=== PATIENT | female | born 2000 | race Caucasian/White ===

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

== ENCOUNTER → 2018-09-17 | Outpatient (CLI) | payer BC ==
--- NOTE | 2018-09-19 13:13 | MR ---
EXAMINATION TYPE: MR brain wo con DATE OF EXAM: 09/17/2018 COMPARISON: NONE at this institution. HISTORY: Aneurysm per order. Prior abnormal MRI per patient. History of dizziness or hearing loss per patient. TECHNIQUE: Multiplanar, multisequence imaging of the brain and brainstem is performed without IV cont rast. FINDINGS: Diffusion weighted images demonstrate no evidence of a recent infarct or other diffusion abnormality. There is no extraaxial fluid collection or significant white matter signal abnormality. The ventricu lar system and cisternal spaces are normal in size and appearance. The brain volume is age appropria te. Midline structures demonstrate normal morphology. The craniocervical junction appears within normal limits. Normal vascular flow voids are present. The visualized sinuses are clear and the globes are i ntact. No suspicious fluid signal is seen in mastoid air cells bilaterally. IMPRESSION: Unremarkable study. If old outside study becomes available an addendum may be issued. If clinical concern for aneurysm remains present dedicated MRA would be warranted.
== END | disposition home or self-care (01) ==
LOC: RADMRIMAIN 15:47
PROVIDERS: ATTEND Registered Nurse Neuroscience
DX: I67.1 Cerebral aneurysm, nonruptured (principal)
CPT/HCPCS: 70551

== ENCOUNTER → 2018-12-28 | Outpatient (CLI) | payer BC | END | disposition home or self-care (01) | LOC: LABWHC1 10:07 | PROVIDERS: ATTEND Pediatrics | DX: R30.0 Dysuria (principal) | CPT/HCPCS: 87086 ==

== ENCOUNTER 2020-05-10 15:41 | Emergency (ER) | payer BC ==
[2020-05-10 15:49] VITALS: TEMP 97.6
[2020-05-10 16:05] VITALS: RESP 16
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
[2020-05-10 16:29] LABS: Appearance,Urine Clear (Clear); Basophils % (A) 0 %; Bilirubin,Urine Negative (Negative); Blood,Urine Negative (Negative); Color,Urine Yellow; Eosinophils % (A) 1 %; Glucose,Urine (UA) Negative (Negative); HCT 40.6 % (34.0-46.0); HGB 13.8 gm/dL (11.4-16.0); Ketones,Urine Negative (Negative); Leukocyte Esterase,Urine Negative (Negative); Lymphocytes # (A) 1.3 k/uL (1.0-4.8); Lymphocytes % (A) 29 %; Mean Platelet Volume 8.1; Monocytes # (A) 0.4 k/uL (0-1.0); Monocytes % (A) 8 %; Neutrophils # (A) 2.8 k/uL (1.3-7.7); Neutrophils % (A) 60 %; Nitrite,Urine Negative (Negative); PH, Urine 5.5 (5.0-8.0); Platelet Count 188 k/uL (150-450); Protein,Urine Trace (Negative); RBC 4.32 m/uL (3.80-5.40); RDW 12.3 % (11.5-15.5); Specific Gravity,Urine 1.027 (1.001-1.035); Urobilinogen,Urine <2.0 mg/dL (<2.0); WBC 4.6 k/uL (3.8-10.6)
[2020-05-10 16:42] LABS: ALT 7 U/L (4-34); AST 22 U/L (14-36); African American GFR (CKD) >90 (>60 ml/min/1.73 sqM); Albumin 4.8 g/dL (3.5-5.0); Alkaline Phosphatase 55 U/L (38-126); Anion Gap 7 mmol/L; Blood Urea Nitrogen 10 mg/dL (7-17); Calcium 9.6 mg/dL (8.4-10.2); Carbon Dioxide 25 mmol/L (22-30); Chloride 104 mmol/L (98-107); Creatine Kinase 74 U/L (30-135); Glucose 94 mg/dL (74-99); Non-African American GFR(CKD) >90 (>60 ml/min/1.73 sqM); Potassium 4.1 mmol/L (3.5-5.1); Sodium 136 mmol/L (137-145); Total Bilirubin 0.9 mg/dL (0.2-1.3); Total Protein 7.8 g/dL (6.3-8.2)
[2020-05-10 17:11] LABS: VBG PH 7.34 (7.31-7.41)
[2020-05-10 17:52] VITALS: BP 108/75; PULSE 90
== END 2020-05-10 17:57 | disposition home or self-care (01) ==
LOC: EC 15:41
DX: R07.89 Other chest pain (principal); R51.9 Headache, unspecified; R06.02 Shortness of breath; G40.909 Epilepsy, unspecified, not intractable, without status epilepticus; Z79.899 Other long term (current) drug therapy; Z82.49 Family history of ischemic heart disease and other diseases of the circulatory system
CPT/HCPCS: 36415; 80053; 81003; 81025; 82375; 82550; 82803; 83605; 84484; 85025; 93005; 99285

== ENCOUNTER 2020-06-07 10:59 | Emergency (ER) | payer BC ==
[2020-06-07 11:19] VITALS: RESP 18
--- NOTE | 2020-06-07 11:20 | ED ---
General Adult HPI - General Source: patient, RN notes reviewed Mode of arrival: ambulatory Limitations: no limitations <Deonte Carlson - Last Filed: 06/07/20 11:19> <Cristino Bhatt - Last Filed: 06/07/20 15:02> - General Stated complaint: Nausea, swollen throat, GLORY Time Seen by Provider: 06/07/20 11:15 - History of Present Illness Initial comments: 19-year-old female presents emergency Department chief complaint of sore throat, irritation to her throat and then to her chest. She states it feels like something is moving up and down her esophagus. She's had slight nausea no exact vomiting. Patient denies any difficulty breathing currently no fevers or chills no body aches. No sick contacts. Patient has no history of heartburn. She did state that she received started a new control one week ago. (Deonte Carlson) This is a 19-year-old female presents emergency Department complaining of sore throat and occasionally feeling like things are getting stuck in her esophagus. Patient states they never do get stuck and she is able to eat and drink and get everything down but it just seems more difficult than usual. Patient states she is slightly nauseated but hasn't had any vomiting. Patient states occasionally she thinks when she swallows might of a little shortness of breath as well. Patient denies any fever chills patient denies any diarrhea patient denies any loss of smell or taste. Patient denies any cough. Patient denies any chest pain or palpitations (Cristino Bhatt) - Related Data Home Medications Medication Instructions Recorded Confirmed levETIRAcetam [Keppra] 750 mg PO BID 05/10/20 06/07/20 Norethindrone-E.estradiol-Iron 1 tab PO DAILY@1730 06/07/20 06/07/20 [Junel Fe 1 mg-20 Mcg Tablet] Previous Rx's Medication Instructions Recorded Famotidine [Pepcid] 20 mg PO BID #20 tablet 06/07/20 Allergies Allergy/AdvReac Type Severity Reaction Status Date / Time No Known Allergies Allergy Verified 06/07/20 14:14 Review of Systems ROS Other: All systems not noted in ROS Statement are negative. <Deonte Carlson - Last Filed: 06/07/20 11:19> ROS Other: All systems not noted in ROS Statement are negative. <Cristino Bhatt - Last Filed: 06/07/20 15:02> ROS Statement: Those systems with pertinent positive or pertinent negative responses have been documented in the HPI. Past Medical History Past Medical History: Seizure Disorder History of Any Multi-Drug Resistant Organisms: None Reported Past Surgical History: No Surgical Hx Reported Additional Past Surgical History / Comment(s): angiogram Past Psychological History: Anxiety Smoking Status: Never smoker Past Alcohol Use History: Occasional Past Drug Use History: None Reported <Deonte Carlson - Last Filed: 06/07/20 11:19> General Exam Limitations: no limitations General appearance: alert, in no apparent distress Head exam: Present: atraumatic, normocephalic, normal inspection Eye exam: Present: normal appearance, PERRL, EOMI. Absent: scleral icterus, conjunctival injection, periorbital swelling ENT exam: Present: normal exam, normal oropharynx, mucous membranes moist Respiratory exam: Present: normal lung sounds bilaterally. Absent: respiratory distress, wheezes, rales, rhonchi, stridor Cardiovascular Exam: Present: regular rate, normal rhythm, normal heart sounds. Absent: systolic murmur, diastolic murmur, rubs, gallop, clicks <Deonte Carlson - Last Filed: 06/07/20 11:19> <Cristino Bhatt - Last Filed: 06/07/20 15:02> - General Exam Comments Initial Comments: GENERAL: Patient is well-developed and well-nourished. Patient is nontoxic and well- hydrated and is in no acute distress. ENT: Neck is soft and supple. No significant lymphadenopathy is noted. Oropharynx is clear. Moist mucous membranes. Neck has full range of motion without eliciting any pain. EYES: The sclera were anicteric and conjunctiva were pink and moist. Extraocular movements were intact and pupils were equal round and reactive to light. Eyelids were unremarkable. PULMONARY: Unlabored respirations. Good breath sounds bilaterally. No audible rales rhonchi or wheezing was noted. CARDIOVASCULAR: There is a regular rate and rhythm without any murmurs gallops or rubs. ABDOMEN: Soft and nontender with normal bowel sounds. SKIN: Skin is clear with no lesions or rashes and otherwise unremarkable. NEUROLOGIC: Patient is alert and oriented x3. Cranial nerves II through XII are grossly intact. Motor and sensory are also intact. Normal speech, volume and content. Symmetrical smile. MUSCULOSKELETAL: Normal extremities with adequate strength and full range of motion. LYMPHATICS: No significant lymphadenopathy is noted PSYCHIATRIC: Normal psychiatric evaluation. (Cristino Bhatt) Course Vital Signs 06/07/20 11:16 Temperature 98 F Pulse Rate 106 H Respiratory 18 Rate Blood Pressure 129/76 Medical Decision Making <Cristino Bhatt - Last Filed: 06/07/20 15:02> - Medical Decision Making Chest x-ray shows no acute abnormality. Patient a GI cocktail didn't seem to help the symptoms. I recommended the patient follow-up with GI for an endoscopy. Rapid strep is negative. (Cristino Bhatt) - Lab Data Lab Results 06/07/20 Range/Units 13:25 Group A Strep Rapid Negative (Negative) Disposition <Deonte Carlson - Last Filed: 06/07/20 11:19> Is patient prescribed a controlled substance at d/c from ED?: No <Cristino Bhatt - Last Filed: 06/07/20 15:02> Clinical Impression: Gastroesophageal reflux Disposition: HOME SELF-CARE Condition: Good Instructions (If sedation given, give patient instructions): Gastroesophageal Reflux Disease (ED) Prescriptions: Famotidine [Pepcid] 20 mg PO BID #20 tablet Referrals: Mayur Redmond DO [Primary Care Provider] - 1-2 days
[2020-06-07] MEDS ORDERED: MAG HYDROX/AL HYDROX/SIMETH 30 ML, HYOSCYAMINE ELIXIR 10 ML PO STA ×2 (13:29)
--- NOTE | 2020-06-07 13:57 | XR ---
EXAMINATION TYPE: XR chest 2V DATE OF EXAM: 06/07/2020 COMPARISON: NONE HISTORY: Difficulty breathing TECHNIQUE: Frontal and lateral views of the chest are obtained. FINDINGS: There is no focal air space opacity, pleural effusion, or pneumothorax seen. The cardiac silhouette size is within normal limits. The osseous structures are intact. IMPRESSION: No acute cardiopulmonary process.
[2020-06-07] MEDS ORDERED: ONDANSETRON 4 MG ODT STARTER PACK 2 TAB BTL PO STA (15:03)
[2020-06-07] MEDS ORDERED: ONDANSETRON ODT 4 MG TAB PO STA (15:03)
[2020-06-07 15:52] VITALS: BP 111/74; PULSE 70; TEMP 98.2
== END 2020-06-07 15:52 | disposition home or self-care (01) ==
LOC: EC 10:59
DX: K21.9 Gastro-esophageal reflux disease without esophagitis (principal)
CPT/HCPCS: 71046; 87081; 87430; 99283

== ENCOUNTER → 2020-06-21 | Outpatient (CLI) | payer BC ==
--- NOTE | 2020-06-21 15:52 | FL ---
EXAMINATION TYPE: FL barium swallow DATE OF EXAM: 06/21/2020 COMPARISON: None HISTORY: Dysphagia TECHNIQUE: A single contrast UGI study is performed. FINDINGS: Fluoroscopy time: 40 seconds Images: 35 Esophagus dilates to normal caliber and has normal contour the gastroesophageal junction. Gastroesoph ageal junction opens normal caliber. No reflux was elicited during the examination. No secondary or t ertiary contractions are evident. There is complete stripping of the esophageal bolus in the horizont al drinking position. IMPRESSIONS: 1. Normal esophagram
== END | disposition home or self-care (01) ==
LOC: RADUSWWP 09:53
PROVIDERS: ATTEND Family Medicine
DX: R13.10 Dysphagia, unspecified (principal)
CPT/HCPCS: 74220

== ENCOUNTER → 2021-03-21 | Outpatient (CLI) | payer BC ==
[2021-03-21 15:00] LABS: INR 1.1 (<1.2); Partial Thromboplastin Time 25.7 sec (22.0-30.0); Prothrombin Time 11.2 sec (9.0-12.0)
[2021-03-22 09:52] LABS: Protein C (Activity) 90 % (71-138)
[2021-03-22 12:04] LABS: APTT 56 Sec(s) (<43); APTT 1:1 Mix 41 Sec(s) (<43); DRVVT 1:1 Mix 39 Sec(s) (<44); Dilute Russell Viper Venom 46 Sec(s) (<44)
[2021-03-22 13:09] LABS: Anti-Thrombin III Antigen 92 % (80 - 120)
== END | disposition home or self-care (01) ==
LOC: LABWHC1 10:37
PROVIDERS: ATTEND Psychiatry & Neurology Neurology
DX: I63.9 Cerebral infarction, unspecified (principal)
CPT/HCPCS: 36415; 81241; 81291; 85301; 85303; 85306; 85610; 85613; 85730

== ENCOUNTER 2021-04-08 08:03 | Day surgery (SDC) | payer BC ==
[2021-04-03 14:02] VITALS: BMI 21.8
[2021-04-08 08:31] VITALS: TEMP 98.2
[2021-04-08] MEDS ORDERED: SODIUM CHLORIDE 0.9% 500 ML 500 ML IV ONE (08:31)
[2021-04-08] MEDS ORDERED: fentaNYL (PF) 50 MCG/ML 2 ML AMP ONE (09:32)
[2021-04-08] MEDS: BENZOCAINE SPRAY 1 CAN TOPICAL ONE ×2 (09:50→10:06)
[2021-04-08] MEDS ORDERED: MIDAZOLAM 2 MG/2 ML VIAL IV ONE (10:06)
[2021-04-08] MEDS ORDERED: fentaNYL (PF) 50 MCG/ML 2 ML AMP IV ONE (10:06)
--- NOTE | 2021-04-08 11:47 | P.TEE ---
Description of Procedure(s): Indication: CVA rule out cardiac source Procedure note: After obtaining informed consent transesophageal cardiogram was performed in left lateral position using an Omniplane probe local and IV sedation were obtained with 2 mg of Versed and 25 g of fentanyl patient tolerated the procedure well without any observed it complications 2-D M-mode color Doppler and spectral analysis was performed agitated saline contrast study was used Findings: Left ventricle has normal size and systolic function left atrium appears mildly enlarged right atrium and right ventricle seen within normal limits There is evidence of [id number] shunt across the interatrial septum without any evidence of [id number] shunt with agitated saline contrast study this seems to be secondary to a small septum second of atrial septal defect Mitral valve is anatomically normal there is no evidence of mitral stenosis or regurgitation Tricuspid valve appears normal Aortic valve is a 3 leaflet valve there is no evidence of right stenosis or regurgitation Left atrial appendage is free of thrombus Conclusions: No intracardiac thrombus There is a small septum secundum atrial septal defect with [id number] shunt Plan: I will refer the patient to a pediatric neurologist for further advice I will refer the patient to lithographic stripper given the abnormal hypercoagulable workup
[2021-04-08 18:01] VITALS: BP 111/66; PULSE 84; RESP 16
== END 2021-04-08 11:15 | disposition home or self-care (01) ==
LOC: CATHCVL 08:03
PROVIDERS: ATTEND Internal Medicine Cardiovascular Disease
DX: I63.9 Cerebral infarction, unspecified (principal); Z20.822 Contact with and (suspected) exposure to COVID-19; Q21.1 Atrial septal defect; Z82.49 Family history of ischemic heart disease and other diseases of the circulatory system; Z79.899 Other long term (current) drug therapy; Z79.82 Long term (current) use of aspirin; Z88.8 Allergy status to other drugs, medicaments and biological substances
CPT/HCPCS: 93312; 93320; 93325; 81025; 87635; J2250; J3010

== ENCOUNTER → 2021-05-14 | Outpatient (CLI) | payer BC ==
--- NOTE | 2021-05-14 16:42 | US ---
EXAMINATION TYPE: US venous doppler duplex LE BI DATE OF EXAM: 05/14/2021 3:10 PM COMPARISON: NONE CLINICAL HISTORY: 20-year-old female D68.59 hypercoagulable state. TIA, seizures; recently diagnosed with congenital heart defect; on baby aspirin SIDE PERFORMED: Bilateral TECHNIQUE: The lower extremity deep venous system is examined utilizing real time linear array sonog ayesha with graded compression, doppler sonography and color-flow sonography. FINDINGS: VESSELS IMAGED: Common Femoral Vein Deep Femoral Vein Greater Saphenous Vein * Femoral Vein Popliteal Vein Small Saphenous Vein * Proximal Calf Veins (* superficial vessels) Right Leg: Negative for DVT Left Leg: Negative for DVT IMPRESSION: No evidence for DVT within the bilateral lower extremities imaged from the groin to the upper calves.
== END | disposition home or self-care (01) ==
LOC: RADUSWWP 14:31
PROVIDERS: ATTEND Internal Medicine Hematology & Oncology
DX: D68.59 Other primary thrombophilia (principal); Q24.9 Congenital malformation of heart, unspecified
CPT/HCPCS: 93970

== ENCOUNTER → 2021-09-14 | Outpatient (CLI) | payer BC, OTHER ==
[2021-09-14 17:14] LABS: African American GFR (CKD) 121.3 (60.0-200.0); Albumin 4.6 g/dL (3.8-4.9); Albumin/Globulin Ratio 1.77 (1.60-3.17); Anion Gap 11.7 mmol/L (10.00-18.00); BUN/Creat Ratio 16.25 Ratio (12.00-20.00); Calcium 9.2 mg/dL (8.7-10.3); Carbon Dioxide 23.3 mmol/L (20.0-27.5); Globulin 2.6 g/dL (1.6-3.3); Non-African American GFR(CKD) 104.6 (60.0-200.0); Potassium 4.2 mmol/L (3.5-5.5); Total Bilirubin 0.2 mg/dL (0.30-1.20); Total Protein 7.2 g/dL (6.2-8.2)
[2021-09-14 17:34] LABS: Basophils # (A) 0.01 X 10*3/uL (0.00-0.10); Basophils % (A) 0.3 %; Eosinophils # (A) 0.04 X 10*3/uL (0.04-0.35); HCT 38.1 % (37.2-46.3); HGB 12.2 g/dL (12.0-15.0); Immature Grans, Automated 0.3 %; Lymphocytes # (A) 1.69 X 10*3/uL (0.90-5.00); Lymphocytes % (A) 44.4 %; MCH 30.2 pg (27.0-32.0); MCV 94.3 fL (80.0-97.0); Mean Platelet Volume 11.6 fL (9.5-12.2); Monocytes # (A) 0.38 X 10*3/uL (0.20-1.00); NRBC Per 100 WBC 0 /100 WBCS (0.0-0.0); Neutrophils # (A) 1.68 X 10*3/uL (1.80-7.70); Platelet Count 203 X 10*3/uL (140-440); RBC 4.04 X 10*6/uL (4.10-5.20); RDW 13.4 % (11.5-14.5); WBC 3.81 X 10*3/uL (4.50-10.00)
== END | disposition home or self-care (01) ==
LOC: LABWHC1 08:36
PROVIDERS: ATTEND Nurse Practitioner Acute Care
DX: I63.9 Cerebral infarction, unspecified (principal); R56.9 Unspecified convulsions; R42 Dizziness and giddiness; H53.8 Other visual disturbances; E55.9 Vitamin D deficiency, unspecified
CPT/HCPCS: 36415; 80053; 80177; 82306; 85025

== ENCOUNTER 2022-02-09 20:21 | Emergency (ER) | payer BC, OTHER ==
[2022-02-09 20:48] VITALS: BP 133/82; PULSE 98; RESP 18; TEMP 98.2
--- NOTE | 2022-02-09 21:56 | ED ---
Eye Problem HPI - General Chief complaint: Eye Problems Stated complaint: rt eye vision loss, chest pain Time Seen by Provider: 02/09/22 21:29 Source: patient, RN notes reviewed, old records reviewed Mode of arrival: ambulatory Limitations: no limitations - History of Present Illness Initial comments: This is a 21-year-old female to the emergency department for evaluation. Patient has a long Medical history history of CVA history of repaired PFO. Hi story of seizures from an unknown cause on [place]. Patient states she was reading today happened to notice that she couldn't see out of the right side of her ride both eyes to the right side patient right-sided peripheral field deficit which is improving maybe still little diminished MD chief complaint: other (right sided visual field loss) -: hour(s) Onset Description: sudden, gradual Location: right eye, left eye, both eyes Place: work If Injury: none Severity: severe Severity scale (1-10): 8 Consistency: intermittent Context: other (history of stroke) Associated Symptoms: none Treatments Prior to Arrival: none - Related Data Home Medications Medication Instructions Recorded Confirmed levETIRAcetam [Keppra] 750 mg PO BID 05/10/20 06/11/21 Aspirin EC [Ecotrin Low Dose] 81 mg PO DAILY 04/03/21 06/11/21 Allergies Allergy/AdvReac Type Severity Reaction Status Date / Time ethinyl estradiol Allergy TIGHTNESS Verified 06/11/21 16:37 [From ()] OF THROAT , SHORTNESS OF BREATH ferrous fumarate Allergy TIGHTNESS Verified 06/11/21 16:37 [From ()] OF THROAT , SHORTNESS OF BREATH norethindrone acetate Allergy TIGHTNESS Verified 06/11/21 16:37 [From ()] OF THROAT , SHORTNESS OF BREATH Penicillins Allergy Unknown Verified 02/09/22 20:48 Review of Systems ROS Statement: Those systems with pertinent positive or pertinent negative responses have been documented in the HPI. ROS Other: All systems not noted in ROS Statement are negative. Past Medical History Past Medical History: CVA/TIA, Seizure Disorder Additional Past Medical History / Comment(s): LAST SEIZURE APR 2017, MIGRAINE HEADACHES, History of Any Multi-Drug Resistant Organisms: None Reported Past Surgical History: No Surgical Hx Reported Additional Past Surgical History / Comment(s): angiogram, Past Anesthesia/Blood Transfusion Reactions: No Reported Reaction Past Psychological History: Anxiety Smoking Status: Never smoker Past Alcohol Use History: Occasional Past Drug Use History: None Reported - Past Family History Mother Family Medical History: No Reported History General Exam - General Exam Comments Initial Comments: right sided visual field loss Limitations: no limitations General appearance: alert, in no apparent distress Head exam: Present: atraumatic, normocephalic, normal inspection Eye exam: Present: normal appearance, PERRL, EOMI. Absent: scleral icterus, conjunctival injection, periorbital swelling ENT exam: Present: normal exam, mucous membranes moist Neck exam: Present: normal inspection. Absent: tenderness, meningismus, lymphadenopathy Respiratory exam: Present: normal lung sounds bilaterally. Absent: respiratory distress, wheezes, rales, rhonchi, stridor Cardiovascular Exam: Present: regular rate, normal rhythm, normal heart sounds. Absent: systolic murmur, diastolic murmur, rubs, gallop, clicks GI/Abdominal exam: Present: soft, normal bowel sounds. Absent: distended, tenderness, guarding, rebound, rigid Extremities exam: Present: normal inspection, full ROM, normal capillary refill. Absent: tenderness, pedal edema, joint swelling, calf tenderness Back exam: Present: normal inspection Neurological exam: Present: alert, oriented X3, CN II-XII intact Psychiatric exam: Present: normal affect, normal mood Skin exam: Present: warm, dry, intact, normal color. Absent: rash Course Vital Signs 02/09/22 20:44 Temperature 98.2 F Pulse Rate 98 Respiratory 18 Rate Blood Pressure 133/82 O2 Sat by Pulse 99 Oximetry - Reevaluation(s) Reevaluation #1: 02/09/22 22:10 medical record is reviewed Reevaluation #2: 02/09/22 22:44 Patient symptoms remains unchanged here in the ER Reevaluation #3: 02/10/22 01:07 Symptoms remained improved here in the ER Reevaluation #4: 02/10/22 01:07 Patient informed results and questions answered Medical Decision Making - Medical Decision Making 21 female for therapeutic peripheral vision loss which is resolved. Patient's imaging is negative here in the ER she can follow-up as an outpatient basis with neurology and ophthalmology - Lab Data Result diagrams: 02/09/22 22:26 02/09/22 22:26 Lab Results 02/09/22 02/09/22 02/09/22 Range/Units 22:26 22:26 22:26 WBC 4.5 (3.8-10.6) k/uL RBC 4.04 (3.80-5.40) m/uL Hgb 12.7 (11.4-16.0) gm/dL Hct 37.1 (34.0-46.0) % MCV 91.8 (80.0-100.0) fL MCH 31.6 (25.0-35.0) pg MCHC 34.4 (31.0-37.0) g/dL RDW 13.6 (11.5-15.5) % Plt Count 208 (150-450) k/uL MPV 8.7 Neutrophils % 71 % Lymphocytes % 21 % Monocytes % 6 % Eosinophils % 0 % Basophils % 0 % Neutrophils # 3.2 (1.3-7.7) k/uL Lymphocytes # 1.0 (1.0-4.8) k/uL Monocytes # 0.3 (0-1.0) k/uL Eosinophils # 0.0 (0-0.7) k/uL Basophils # 0.0 (0-0.2) k/uL Sodium 139 (137-145) mmol/L Potassium 4.5 (3.5-5.1) mmol/L Chloride 107 (98-107) mmol/L Carbon Dioxide 25 (22-30) mmol/L Anion Gap 7 mmol/L BUN 9 (7-17) mg/dL Creatinine 0.61 (0.52-1.04) mg/dL Est GFR (CKD-EPI)AfAm >90 (>60 ml/min/1.73 sqM) Est GFR (CKD-EPI)NonAf >90 (>60 ml/min/1.73 sqM) Glucose 87 (74-99) mg/dL Calcium 9.3 (8.4-10.2) mg/dL Phosphorus 4.1 (2.5-4.5) mg/dL Magnesium 2.1 (1.6-2.3) mg/dL Total Bilirubin 0.6 (0.2-1.3) mg/dL AST 24 (14-36) U/L ALT 12 (4-34) U/L Alkaline Phosphatase 63 (38-126) U/L Troponin I <0.012 (0.000-0.034) ng/mL Total Protein 7.7 (6.3-8.2) g/dL Albumin 4.7 (3.5-5.0) g/dL - EKG Data -: EKG Interpreted by Me (EKG is sinus 73 TN 166 QRS 83 QTc 405) - Radiology Data Radiology results: report reviewed (CT brain CTA [place] negative for acute disease), image reviewed Disposition Clinical Impression: Right homonymous hemianopsia Disposition: HOME SELF-CARE Condition: Good Instructions (If sedation given, give patient instructions): Blurred Vision (ED), Diplopia (ED) Is patient prescribed a controlled substance at d/c from ED?: No Referrals: Dyllan Stephens MD [STAFF PHYSICIAN] - 1-2 days Edy Sanabria MD [STAFF PHYSICIAN] - 1-2 days Kal Anglin MD [Medical Doctor] - 1-2 days Time of Disposition: 01:00
[2022-02-09] MEDS ORDERED: SODIUM CHLORIDE 0.9% 1,000 ML IV STA (22:07)
[2022-02-09 22:43] LABS: Basophils % (A) 0 %; Eosinophils % (A) 0 %; HCT 37.1 % (34.0-46.0); HGB 12.7 gm/dL (11.4-16.0); Lymphocytes % (A) 21 %; MCH 31.6 pg (25.0-35.0); MCHC 34.4 g/dL (31.0-37.0); MCV 91.8 fL (80.0-100.0); Mean Platelet Volume 8.7; Monocytes # (A) 0.3 k/uL (0-1.0); Monocytes % (A) 6 %; Neutrophils # (A) 3.2 k/uL (1.3-7.7); Neutrophils % (A) 71 %; Platelet Count 208 k/uL (150-450); RBC 4.04 m/uL (3.80-5.40); RDW 13.6 % (11.5-15.5); WBC 4.5 k/uL (3.8-10.6)
[2022-02-09 22:53] LABS: ALT 12 U/L (4-34); AST 24 U/L (14-36); African American GFR (CKD) >90 (>60 ml/min/1.73 sqM); Albumin 4.7 g/dL (3.5-5.0); Alkaline Phosphatase 63 U/L (38-126); Anion Gap 7 mmol/L; Blood Urea Nitrogen 9 mg/dL (7-17); Calcium 9.3 mg/dL (8.4-10.2); Carbon Dioxide 25 mmol/L (22-30); Chloride 107 mmol/L (98-107); Glucose 87 mg/dL (74-99); Magnesium 2.1 mg/dL (1.6-2.3); Non-African American GFR(CKD) >90 (>60 ml/min/1.73 sqM); Phosphorus 4.1 mg/dL (2.5-4.5); Potassium 4.5 mmol/L (3.5-5.1); Sodium 139 mmol/L (137-145); Total Bilirubin 0.6 mg/dL (0.2-1.3); Total Protein 7.7 g/dL (6.3-8.2)
--- NOTE | 2022-02-09 23:33 | CT ---
EXAMINATION TYPE: CT brain wo con DATE OF EXAM: 02/09/2022 COMPARISON: None HISTORY: rt sided vision loss CT DLP: 1232.8 mGycm Automated exposure control for dose reduction was used. Images obtained of the brain with no contrast. Ventricles and sulci appear normal. There is no mass effect or midline shift. No sign of intracranial hemorrhage. Calvarium is intact. There is normal aeration of the mastoid sinuses. IMPRESSION: Negative unenhanced head CT scan.
--- NOTE | 2022-02-10 00:24 | CT ---
EXAMINATION TYPE: CT angio COW [place] DATE OF EXAM: 02/09/2022 COMPARISON: None HISTORY: rt sided vision loss CT DLP: 1184.1 mGycm Automated exposure control for dose reduction was used. CONTRAST: Performed with IV Contrast, patient injected with 75 mL of Isovue 370. Images obtained from the skull base to the vertex of the brain with IV contrast. There are Three-D po stprocessed images. There is arterial flow in the anterior middle and posterior cerebral arteries bilaterally. There is n ormal contrast opacification of the venous sinuses. No evidence of intracranial aneurysm or neovascul arity. No mass effect. No evidence of intracranial hemodynamic arterial stenosis. IMPRESSION: Normal CT exam of the brain.
== END 2022-02-10 00:42 | disposition home or self-care (01) ==
LOC: EC 20:21
DX: H53.461 Homonymous bilateral field defects, right side (principal); F41.9 Anxiety disorder, unspecified; Z88.8 Allergy status to other drugs, medicaments and biological substances; Z88.0 Allergy status to penicillin
CPT/HCPCS: 99285 ×2; 96360 ×2; 36415; 93005; 80053; 83735; 84100; 84484; 85025; 70496; 70450; Q9967

== ENCOUNTER → 2022-05-21 | Outpatient (CLI) | payer BC, OTHER ==
--- NOTE | 2022-05-22 07:15 | CT ---
EXAMINATION TYPE: CT angio head neck DATE OF EXAM: 05/21/2022 HISTORY: Cerebral Infarct, unspecified COMPARISON: CTA [place] [facility] [place] February 09, 2022 CT DLP: 244 mGycm. Automated Exposure Control for Dose Reduction was Utilized. TECHNIQUE: CTA scan of the head and neck is performed without and with IV Contrast, patient injected with 65 ml mL of Isovue 370, axial images are obtained, coronal and sagittal reformatted images are reviewed. 3D reconstructed images are created on an independent workstation and reviewed. FINDINGS: Carotid/Vascular Structures: Normal 3 vessel origin from the aortic arch. No significant plaque or st enosis in the common or internal carotid arteries bilaterally including at the level of the carotid b ulbs. There are patent external carotid arteries bilaterally without significant plaque or stenosis. There are codominant vertebral arteries patent to the basilar junction. There is no significant focal stenosis or aneurysm in the posterior circulation. There are hypoplastic bilateral posterior communi cating arteries seen. There is a patent anterior communicating artery. There is no significant focal stenosis or aneurysm in the anterior circulation. Other: Focal volume loss left frontoparietal junction area axial image 35 series 7 is redemonstrated. IMPRESSION: No significant stenosis or aneurysm. NASCET criteria was used in interpretation of this exam?
== END | disposition home or self-care (01) ==
LOC: RADCTMAIN 12:58
PROVIDERS: ATTEND Psychiatry & Neurology Neurology
DX: I63.9 Cerebral infarction, unspecified (principal)
CPT/HCPCS: 70496; 70498; Q9967

== ENCOUNTER 2022-06-11 20:58 | Emergency (ER) | payer BC, OTHER ==
[2022-06-11 21:04] VITALS: RESP 16; TEMP 98
--- NOTE | 2022-06-11 21:36 | ED ---
General Adult HPI - General Chief complaint: Neuro Symptoms/Deficit Stated complaint: Mini stroke Time Seen by Provider: 06/11/22 21:09 Source: patient Mode of arrival: ambulatory - History of Present Illness Initial comments: Dictation was produced using [employer] dictation software. please excuse any grammatical, word or spelling errors. Chief Complaint: 21-year-old female presents emergency Department with visual changes History of Present Illness: 21-year-old female presents emergency department with transient visual changes. Approximately 2-3 hours prior to arrival she had 40 minutes of left-sided temporal vision changes. She states that initially it appeared to be like someone had shine a light in her eyes. All of sudden it started to appear like strobe lights and blurriness. States that last for approximately 30 minutes. Since being in the ER her visions has been fine. Back in February she had similar issues that she reports was much more severe. She was told that she may have had a transient ischemic attack. Patient has history of septal defect status post repair [facility] several years ago. She does have a history of seizures. She apparently was told at one point that she had an aneurysm however recently she had a angiogram that did not suggest she had a seizure. She states that her outpatient neurologist and do ctors have been a little vague on if she had an aneurysm or not. Patient states after the visual changes she did start expressing symptoms of mild headache. Denies any extremity weakness. The ROS documented in this emergency department record has been reviewed and confirmed by me. Those systems with pertinent positive or negative responses have been documented in the HPI. All other systems are other negative and/or noncontributory. PHYSICAL EXAM: General Impression: Alert and oriented x3, not in acute distress HEENT: Normocephalic atraumatic, extra-ocular movements intact, pupils equal and reactive to light bilaterally, mucous membranes moist. Cardiovascular: Heart regular rate and rhythm Chest: Able to complete full sentences, no retractions, no tachypnea Abdomen: abdomen soft, non-tender, non-distended, no organomegaly Musculoskeletal: Pulses present and equal in all extremities, no peripheral edema Motor: no focal deficits noted Neurological: CN II-XII grossly intact, no focal motor or sensory deficits noted Skin: Intact with no visualized rashes Psych: Normal affect and mood ED course: 21 y old female presents to the emergency department with transient vision loss that was followed by a mild headache. Clinical presentation consistent with complex migraine. Vital signs upon arrival are within acceptable limits. Patient is asymptomatic at bedside. Nursing notes and chart review was performed Was pt. sent in by a medical professional or institution (ANNEMARIE Shetty, R[employer]EWABLE [employer] PROJECT MANAGER, urgent care, hospital, or fpc...) When possible be specific @ -No Did you speak to anyone other than the patient for history (EMS, parent, family, police, friend...)? What history was obtained from this source @ - at the bedside, father at the bedside Did you review nursing and triage notes (agree or disagree)? Why? @ -Yes Were old charts reviewed (outside hosp., previous admission, EMS record, old EKG, old radiological studies, urgent care reports/EKG's, fpc records)? Report findings @ -Previous imaging results were reviewed Differential Diagnosis (chest pain, altered mental status, abdominal pain women, abdominal pain men, vaginal bleeding, musculoskeletal, weakness, fever, dyspnea, syncope, headache, dizziness, GI bleed, back pain, seizure, CVA, palpatations, mental health)? @ - Differential CVA: Ischemic stroke, hemorrhagic stroke, brain tumor, atypical migraine, Wernicke's encephalopathy, seizure, multiple sclerosis, meningitis, encephalitis, hypoglycemia, Guillain-Sol, electrolytes disturbance, myasthenia gravis.... This is not meant to be an all-inclusive list EKG interpreted by me (3pts min.). @ -None done X-rays interpreted by me (1pt min.). @ -None done CT interpreted by me (1pt min.). @ -No acute processes U/S interpreted by me (1pt. min.). @ -None done What testing was considered but not performed or refused? (CT, X-rays, U/S, labs)? Why? @ -None What meds were considered but not given or refused? Why? @ -None Did you discuss the management of the patient with other professionals (professionals i.e. ANNEMARIE Shetty, RENEWABLE [employer] PROJECT MANAGER, lab, RT, psych nurse, aids social worker, lighting adviser, teacher, communications officer, upper caser)? Give summary @ -No Was smoking cessation discussed for >3mins.? @ -No Was critical care preformed (if so, how long)? @ -No Were there social determinants of health that impacted care today? How? (Homelessness, low income, unemployed, alcoholism, drug addiction, transportation, low edu. Level, literacy, decrease access to med. care, senior care, rehab)? @ -No Was there de-escalation of care discussed even if they declined (Discuss DNR or withdrawal of care, Hospice)? DNR status @ -No What co-morbidities impacted this encounter? (DM, HTN, Smoking, COPD, CAD, Cancer, CVA, ARF, Chemo, Hep., AIDS, mental health diagnosis, sleep apnea, morbid obesity)? @ -None Was patient admitted / discharged? Hospital course, mention meds given and route, prescriptions, significant lab abnormalities, going to OR and other pertinent info. @ -21 Year-old female with clinical presentation consistent with complex migraine. Patient does not have persistent visual changes. Patient will. I bedside. NIH score is 0. Neurologic exam is unremarkable. Patient denies any visual changes at the bedside. History of present illness is not suggest ocular CVA. No concern for retinal issue at the moment given that she doesn't have persistent visual changes. Computed tomography scan is unremarkable. Patient will be discharged. Advised follow up with neurologist. Undiagnosed new problem with uncertain prognosis? @ -No Drug Therapy requiring intensive monitoring for toxicity (Heparin, Nitro, Insulin, Cardizem)? @ -No Were any procedures done? @ -No Diagnosis/symptom? Acute, or Chronic, or Acute on Chronic? Uncomplicated (wit hout systemic symptoms) or Complicated (systemic symptoms)? @ -1. Acute uncomplicated complex migraine. Side effects of treatment? @ -No Exacerbation, Progression, or Severe Exacerbation? @ -No Poses a threat to life or bodily function? How? (Chest pain, [place], [place], pneumonia, PE, COPD, DKA, ARF, appy, cholecystitis, CVA, Diverticulitis, Homicidal, Suicidal, threat to staff... and all critical care pts) @ -No - Related Data Home Medications Medication Instructions Recorded Confirmed levETIRAcetam [Keppra] 750 mg PO BID 05/10/20 06/11/21 Aspirin EC [Ecotrin Low Dose] 81 mg PO DAILY 04/03/21 06/11/21 Allergies Allergy/AdvReac Type Severity Reaction Status Date / Time ethinyl estradiol Allergy TIGHTNESS Verified 06/11/22 21:04 [From ()] OF THROAT , SHORTNESS OF BREATH ferrous fumarate Allergy TIGHTNESS Verified 06/11/22 21:04 [From ()] OF THROAT , SHORTNESS OF BREATH norethindrone acetate Allergy TIGHTNESS Verified 06/11/22 21:04 [From ()] OF THROAT , SHORTNESS OF BREATH Penicillins Allergy Unknown Verified 06/11/22 21:04 Review of Systems ROS Statement: Those systems with pertinent positive or pertinent negative responses have been documented in the HPI. ROS Other: All systems not noted in ROS Statement are negative. Past Medical History Past Medical History: CVA/TIA, Seizure Disorder Additional Past Medical History / Comment(s): LAST SEIZURE APR 2017, MIGRAINE HEADACHES, History of Any Multi-Drug Resistant Organisms: None Reported Past Surgical History: No Surgical Hx Reported Additional Past Surgical History / Comment(s): angiogram, Past Anesthesia/Blood Transfusion Reactions: No Reported Reaction Past Psychological History: Anxiety Smoking Status: Never smoker Past Alcohol Use History: Occasional Past Drug Use History: None Reported - Past Family History Mother Family Medical History: No Reported History Course Vital Signs 06/11/22 21:02 Temperature 98.0 F Pulse Rate 97 Respiratory 16 Rate Blood Pressure 121/81 O2 Sat by Pulse 100 Oximetry Medical Decision Making - Lab Data Lab Results 06/11/22 Range/Units 21:53 Urine HCG, Qual Not Detected (Not Detectd) Disposition Clinical Impression: Migraine Disposition: HOME SELF-CARE Condition: Good Instructions (If sedation given, give patient instructions): Acute Headache (ED) Is patient prescribed a controlled substance at d/c from ED?: No Referrals: Mayur Redmond DO [Primary Care Provider] - 1-2 days Time of Disposition: 22:24
--- NOTE | 2022-06-11 21:54 | CT ---
EXAMINATION TYPE: CT brain wo con CT DLP: 1159.4 mGycm, Automated exposure control for dose reduction was used. DATE OF EXAM: 06/11/2022 9:50 PM COMPARISON: 02/09/2022. CLINICAL INDICATION:Female, 21 years old with history of transient visual changes, History of seizure s, transient visual changes today. TECHNIQUE: Brain: Axial CT images of the brain were obtained with coronal and sagittal reformats created and rev iewed. Contrast used: None. Oral contrast used: None. FINDINGS: Brain: Extra-axial spaces: No abnormal extra-axial fluid collections. Ventricular system: Within normal limits Cerebral parenchyma: No acute intraparenchymal hemorrhage or mass effect. The edgar-white junction is well differentiated. Cerebellum: Unremarkable. Mass effect: No evidence of midline shift. Intracranial vasculature: unremarkable Soft tissues: Normal. Calvarium/osseous structures: No depressed skull fracture. Paranasal sinuses and mastoid air cells: Mild scattered paranasal sinus disease. Visualized orbits: Orbital contents are intact. IMPRESSION: No acute intracranial process.
[2022-06-11 22:50] VITALS: BP 111/73; PULSE 70
== END 2022-06-11 22:53 | disposition home or self-care (01) ==
LOC: EC 20:58
DX: G43.909 Migraine, unspecified, not intractable, without status migrainosus (principal); G40.909 Epilepsy, unspecified, not intractable, without status epilepticus; Z79.82 Long term (current) use of aspirin; Z79.899 Other long term (current) drug therapy; Z86.73 Personal history of transient ischemic attack (TIA), and cerebral infarction without residual deficits; Z88.0 Allergy status to penicillin; Z88.8 Allergy status to other drugs, medicaments and biological substances
CPT/HCPCS: 70450; 81025; 99284

== ENCOUNTER 2022-06-27 12:18 | Day surgery (SDC) | payer BC, OTHER ==
[2022-06-24 17:28] VITALS: BMI 22.8
[~2022-06-27 12:18] MED LIST: LACTATED RINGERS 1,000 ML IV SCH
[2022-06-27 12:54] VITALS: TEMP 97.2
[2022-06-27] MEDS ORDERED: PROPOFOL 10 MG/ML 20 ML VIAL IV ONE (13:35)
--- NOTE | 2022-06-27 13:54 | P.PCN ---
Date of Procedure: 06/27/22 Procedure(s) Performed: BRIEF HISTORY: Patient is a 21-year-old pleasant white female scheduled for an elective colonoscopy as a part of evaluation of intermittent rectal bleeding for the last 1 year duration PROCEDURE PERFORMED: Colonoscopy. PREOPERATIVE DIAGNOSIS: Rectal bleeding. IV sedation per Anesthesia. PROCEDURE: After informed consent was obtained, the patient, was brought into the endoscopy unit. IV sedation was administered by Anesthesia under continuous monitoring. Digital rectal examination was normal. Initially the Olympus CF-160 flexible video colonoscope was then inserted in the rectum, gradually advanced into the cecum without any difficulty. Careful examination was performed as the scope was gradually being withdrawn. Ileocecal valve and the appendiceal orifice were visualized and appeared normal. Prep was excellent. Mucosa of the cecum, ascending colon, transverse colon, descending colon, sigmoid colon, and rectum appeared normal. Retroflexion was performed in the rectum and no lesions were seen. The patient tolerated the procedure well. IMPRESSION: Normal-appearing colon from rectum to cecum with no evidence of colitis or colorectal neoplasia . RECOMMENDATIONS: Findings of this examination were discussed with the patient is well as her family. She was advised to be a high-fiber diet and take fiber supplements a regular basis and no straining and constipation.
[2022-06-27 13:59] VITALS: RESP 16
[2022-06-27 14:31] VITALS: BP 94/67; PULSE 77
== END 2022-06-27 15:15 | disposition home or self-care (01) ==
LOC: ORWHC2ENDO 12:18
PROVIDERS: ATTEND Internal Medicine Gastroenterology
DX: K62.5 Hemorrhage of anus and rectum (principal); Z86.73 Personal history of transient ischemic attack (TIA), and cerebral infarction without residual deficits; Z86.74 Personal history of sudden cardiac arrest; Z79.82 Long term (current) use of aspirin; Z79.899 Other long term (current) drug therapy
CPT/HCPCS: 81025; 45378; J2704